=== PATIENT | male | born 1965 | race Caucasian/White ===

== ENCOUNTER 2021-08-25 20:36 | Inpatient (IN) ==
[2021-08-26] MEDS ORDERED: Naloxone 0.4 MG/ML INJ IVP PRN (00:16)
[2021-08-26] MEDS ORDERED: Melatonin 3 MG TABLET PO PRN (00:16)
[2021-08-26] MEDS ORDERED: Perflutren Lipid Microsphere 1.3 ML in 0.9 % Sodium Chloride 8.7 ML IVP PRN (00:21)
[2021-08-26 01:31] LABS: Hematocrit 41.1 % (37.5-50.1); Hemoglobin 13.5 g/dL (12.9-16.9); Mean Corpuscular HGB Conc 32.8 g/dL (31.6-35.5); Mean Corpuscular Hemoglobin 31.6 pg (28.0-33.3); Mean Corpuscular Volume 96.3 fL (83.0-100.0); Mean Platelet Volume 9.9 fL (9.4-12.4); Platelet Count 298 K/mcL (140-400); Red Blood Count 4.27 M/mcL (4.19-5.50); Red Cell Distribution Width 13.5 % (11.5-14.5); White Blood Count 14.8 K/mcL (4.3-11.1)
[2021-08-26 01:47] LABS: Alanine Aminotransferase 22 Units/L (7-52); Albumin 3.4 g/dL (3.5-5.7); Albumin/Globulin Ratio 1.3 (1.1-2.2); Alkaline Phosphatase 59 Units/L (34-104); Aspartate Amino Transferase 20 Units/L (13-39); BUN/Creatinine Ratio 19 (6-26); Bilirubin,Total 1.3 mg/dL (0.3-1.0); Blood Urea Nitrogen 23 mg/dL (6-20); Calcium 8.4 mg/dL (8.6-10.3); Carbon Dioxide 28 mEq/L (23-29); Chloride 99 mEq/L (98-107); Globulin 2.6 g/dL (2.4-3.5); Glucose 107 mg/dL (70-105); Magnesium 1.8 mg/dL (1.6-2.6); Osmolality,Calculated 284 (280-300); Phosphorous 3.9 mg/dL (2.7-4.5); Potassium 3.9 mEq/L (3.5-5.1); Sodium 135 mEq/L (136-145); eGFR For African Americans > 60 (> 60); eGFR For Non-African Americans > 60 (> 60)
[2021-08-26] MEDS: *HR* Heparin 5,000 UNIT/ML VIAL SQ SCH ×2 (06:47→16:53)
[2021-08-26] MEDS: Nicotine 14 MG PATCH.TD24 TD SCH (07:40)
[2021-08-26] MEDS: Furosemide 40 MG/4 ML VIAL IVP SCH ×2 (07:40→21:40)
[2021-08-26] MEDS: Aspirin 81 MG TAB.CHEW PO SCH (07:40)
[2021-08-26] MEDS: Metoprolol XL (24 HR) Succ 25 MG TAB.ER.24H PO SCH (09:40)
[2021-08-26] MEDS ORDERED: diazePAM 5 MG TABLET PO PRN (16:23)
[2021-08-26] MEDS: *HR* OxyCODONE Immed Rel 15 MG TABLET PO PRN (16:52)
[2021-08-26] MEDS: Gabapentin 300 MG CAPSULE PO SCH (21:40)
[2021-08-27] MEDS: *HR* Heparin 5,000 UNIT/ML VIAL SQ SCH (07:02)
[2021-08-27 07:27] VITALS: BP 115/81; PULSE 105; TEMP 98.7; O2SAT 96
[2021-08-27] MEDS: *HR* OxyCODONE Immed Rel 15 MG TABLET PO PRN ×2 (07:41→14:21)
[2021-08-27] MEDS: Aspirin 81 MG TAB.CHEW PO SCH (08:55)
[2021-08-27] MEDS: Metoprolol XL (24 HR) Succ 25 MG TAB.ER.24H PO SCH (08:55)
[2021-08-27] MEDS: Gabapentin 300 MG CAPSULE PO SCH ×2 (08:56→14:21)
[2021-08-27] MEDS: Furosemide 40 MG/4 ML VIAL IVP SCH (08:56)
[2021-08-27] MEDS ORDERED: lisinopriL 20 MG TABLET PO SCH (09:00)
[2021-08-27] MEDS: Nicotine 14 MG PATCH.TD24 TD SCH (14:23)
== END 2021-08-27 15:56 | disposition left against medical advice (07) | DRG 293 ==
LOC: 3NENU → SUATTDRO 23:30
PROVIDERS: ADMIT Student in an Organized Health Care Education/Training Program; ATTEND Internal Medicine

== ENCOUNTER 2021-09-09 14:02 | Inpatient (IN) ==
[2021-09-09 14:53] LABS: Basophils # 0.1 K/mcL (0.0-0.2); Basophils % 0.4 %; Eosinophils # 0.1 K/mcL (0.0-0.6); Eosinophils % 0.5 %; Hematocrit 37.2 % (37.5-50.1); Hemoglobin 12.3 g/dL (12.9-16.9); Immature Granulocytes % 0.8 % (0-4); Lymphocytes # 1.3 K/mcL (0.6-4.6); Lymphocytes % 10.2 %; Mean Corpuscular HGB Conc 33.1 g/dL (31.6-35.5); Mean Corpuscular Hemoglobin 31.7 pg (28.0-33.3); Mean Corpuscular Volume 95.9 fL (83.0-100.0); Mean Platelet Volume 9.2 fL (9.4-12.4); Monocytes # 1.4 K/mcL (0.0-1.3); Monocytes % 11.1 %; Platelet Count 454 K/mcL (140-400); Red Blood Count 3.88 M/mcL (4.19-5.50)
[2021-09-09 15:09] LABS: BUN/Creatinine Ratio 17 (6-26); Blood Urea Nitrogen 17 mg/dL (6-20); Calcium 8.4 mg/dL (8.6-10.3); Carbon Dioxide 24 mEq/L (23-29); Chloride 98 mEq/L (98-107); Glucose 120 mg/dL (70-105); Osmolality,Calculated 271 (280-300); Potassium 4.4 mEq/L (3.5-5.1); Sodium 129 mEq/L (136-145); Troponin I 0.05 ng/mL (< 0.04); eGFR For African Americans > 60 (> 60); eGFR For Non-African Americans > 60 (> 60)
[2021-09-09] MEDS ORDERED: Furosemide 40 MG/4 ML VIAL IVP ONE (16:22)
[2021-09-09 16:43] LABS: Influenza A PCR Negative (Negative); Influenza B PCR Negative (Negative); Resp. Syncytial Virus PCR Negative (Negative)
[2021-09-09 16:45] LABS: SARS-CoV-2 by PCR (In House) Negative (Negative)
[2021-09-09] MEDS ORDERED: diazePAM 10 MG TABLET PO PRN (22:30)
[2021-09-09] MEDS ORDERED: Naloxone 0.4 MG/ML INJ IVP PRN (22:32)
[2021-09-09] MEDS ORDERED: Acetaminophen 325 MG TABLET PO PRN (22:32)
[2021-09-09] MEDS ORDERED: Ondansetron 4 MG/2 ML VIAL IVP PRN (22:32)
[2021-09-09] MEDS: *HR* OxyCODONE Immed Rel 15 MG TABLET PO PRN (22:42)
[2021-09-09] MEDS: diazePAM 5 MG TABLET PO PRN (22:55)
[2021-09-09 23:00] LABS: Bilirubin,Urine Negative (Negative); Blood,Urine Negative (Negative); Clarity,Urine Clear (Clear); Color,Urine Colorless (Yellow); Glucose,Urine (UA) Normal (Normal); Ketones,Urine Negative (Negative); Leukocyte Esterase,Urine Negative (Negative); Nitrite,Urine Negative (Negative); PH,Urine 6.5 pH Units (5.0-8.0); Protein,Urine Negative (Neg-Trace); Urobilinogen,Urine Normal (Normal)
[2021-09-10 01:43] LABS: Hemoglobin 12.9 g/dL (12.9-16.9); Mean Corpuscular HGB Conc 33.9 g/dL (31.6-35.5); Mean Corpuscular Hemoglobin 31.9 pg (28.0-33.3); Mean Corpuscular Volume 94.1 fL (83.0-100.0); Mean Platelet Volume 9.1 fL (9.4-12.4); Platelet Count 475 K/mcL (140-400); Red Blood Count 4.04 M/mcL (4.19-5.50); Red Cell Distribution Width 13.7 % (11.5-14.5); White Blood Count 13.2 K/mcL (4.3-11.1)
[2021-09-10 01:50] LABS: BUN/Creatinine Ratio 16 (6-26); Blood Urea Nitrogen 17 mg/dL (6-20); Calcium 8.1 mg/dL (8.6-10.3); Carbon Dioxide 28 mEq/L (23-29); Chloride 97 mEq/L (98-107); Chol/HDL Ratio 2.9 (0-4.9); Cholesterol 86 mg/dL (< 200); Glucose 129 mg/dL (70-105); HDL Cholesterol 30 mg/dL (40-59); LDL Cholesterol,Calculated 49 mg/dL (< 100); Magnesium 1.6 mg/dL (1.6-2.6); Osmolality,Calculated 279 (280-300); Potassium 3.6 mEq/L (3.5-5.1); Sodium 133 mEq/L (136-145); Triglycerides 34 mg/dL (< 150); eGFR For African Americans > 60 (> 60); eGFR For Non-African Americans > 60 (> 60)
[2021-09-10 01:53] LABS: % Iron Saturation 3 % (20-55); Iron 11 mcg/dL (65-175); Transferrin 233 mg/dL (203-362)
[2021-09-10 02:11] LABS: Ferritin 156 ng/mL (20-250)
[2021-09-10 02:16] LABS: Folate 13.7 ng/mL (3.0-16.0)
[2021-09-10] MEDS: *HR* Heparin 5,000 UNIT/ML VIAL SQ SCH ×2 (04:51→16:38)
[2021-09-10] MEDS: lisinopriL 20 MG TABLET PO SCH (08:10)
[2021-09-10] MEDS: Gabapentin 400 MG CAPSULE PO SCH ×4 (08:14→19:40)
[2021-09-10] MEDS: Aspirin Enteric Coated 81 MG Tablet PO SCH (08:14)
[2021-09-10] MEDS: Furosemide 20 MG/2 ML VIAL IVP SCH ×2 (08:14→19:39)
[2021-09-10] MEDS: *HR* Metoprolol 5 MG/5 ML VIAL IVP PRN (16:39)
[2021-09-10] MEDS: *HR* OxyCODONE Immed Rel 15 MG TABLET PO PRN ×2 (16:43→22:55)
[2021-09-10] MEDS: diazePAM 5 MG TABLET PO PRN (22:55)
[2021-09-11] MEDS: *HR* OxyCODONE Immed Rel 15 MG TABLET PO PRN ×3 (05:12→22:43)
[2021-09-11] MEDS: *HR* Heparin 5,000 UNIT/ML VIAL SQ SCH ×2 (05:13→16:04)
[2021-09-11 05:20] LABS: Basophils # 0.1 K/mcL (0.0-0.2); Basophils % 0.5 %; Eosinophils # 0.1 K/mcL (0.0-0.6); Eosinophils % 0.7 %; Hemoglobin 13.5 g/dL (12.9-16.9); Immature Granulocytes % 0.9 % (0-4); Lymphocytes # 1.9 K/mcL (0.6-4.6); Lymphocytes % 14.1 %; Mean Corpuscular HGB Conc 32.9 g/dL (31.6-35.5); Mean Corpuscular Hemoglobin 31.5 pg (28.0-33.3); Mean Corpuscular Volume 95.8 fL (83.0-100.0); Mean Platelet Volume 9.1 fL (9.4-12.4); Monocytes # 1.7 K/mcL (0.0-1.3); Monocytes % 13.3 %; Neutrophils # 9.2 K/mcL (1.6-8.9); Platelet Count 563 K/mcL (140-400); Red Blood Count 4.28 M/mcL (4.19-5.50); Red Cell Distribution Width 14.2 % (11.5-14.5); Segmented Neutrophils % 70.5 %; White Blood Count 13.1 K/mcL (4.3-11.1)
[2021-09-11 05:48] LABS: BUN/Creatinine Ratio 16 (6-26); Blood Urea Nitrogen 19 mg/dL (6-20); Calcium 8.7 mg/dL (8.6-10.3); Carbon Dioxide 33 mEq/L (23-29); Chloride 95 mEq/L (98-107); Glucose 164 mg/dL (70-105); Osmolality,Calculated 282 (280-300); Potassium 4.8 mEq/L (3.5-5.1); Sodium 133 mEq/L (136-145); eGFR For African Americans > 60 (> 60); eGFR For Non-African Americans > 60 (> 60)
[2021-09-11] MEDS: lisinopriL 20 MG TABLET PO SCH (07:30)
[2021-09-11] MEDS: Gabapentin 400 MG CAPSULE PO SCH ×4 (07:36→19:38)
[2021-09-11] MEDS: Aspirin Enteric Coated 81 MG Tablet PO SCH (07:36)
[2021-09-11] MEDS: Furosemide 20 MG/2 ML VIAL IVP SCH ×3 (07:36→19:37)
[2021-09-11] MEDS: *HR* Metoprolol 5 MG/5 ML VIAL IVP PRN (16:04)
[2021-09-11] MEDS: diazePAM 5 MG TABLET PO PRN (22:43)
[2021-09-12 03:04] LABS: Basophils # 0.1 K/mcL (0.0-0.2); Basophils % 0.5 %; Eosinophils # 0.2 K/mcL (0.0-0.6); Eosinophils % 1.1 %; Hematocrit 37.9 % (37.5-50.1); Hemoglobin 12.6 g/dL (12.9-16.9); Immature Granulocytes % 0.8 % (0-4); Lymphocytes # 1.5 K/mcL (0.6-4.6); Lymphocytes % 10.7 %; Mean Corpuscular HGB Conc 33.2 g/dL (31.6-35.5); Mean Corpuscular Hemoglobin 31.4 pg (28.0-33.3); Mean Corpuscular Volume 94.5 fL (83.0-100.0); Mean Platelet Volume 9.1 fL (9.4-12.4); Monocytes % 13.7 %; Neutrophils # 10.4 K/mcL (1.6-8.9); Platelet Count 587 K/mcL (140-400); Red Blood Count 4.01 M/mcL (4.19-5.50); Red Cell Distribution Width 13.8 % (11.5-14.5); Segmented Neutrophils % 73.2 %; White Blood Count 14.2 K/mcL (4.3-11.1)
[2021-09-12 03:19] LABS: BUN/Creatinine Ratio 22 (6-26); Blood Urea Nitrogen 24 mg/dL (6-20); Calcium 8.6 mg/dL (8.6-10.3); Carbon Dioxide 29 mEq/L (23-29); Chloride 95 mEq/L (98-107); Glucose 121 mg/dL (70-105); Magnesium 1.9 mg/dL (1.6-2.6); Osmolality,Calculated 281 (280-300); Potassium 4.6 mEq/L (3.5-5.1); Sodium 133 mEq/L (136-145); eGFR For African Americans > 60 (> 60); eGFR For Non-African Americans > 60 (> 60)
[2021-09-12] MEDS: *HR* Heparin 5,000 UNIT/ML VIAL SQ SCH ×2 (05:20→16:07)
[2021-09-12] MEDS: *HR* OxyCODONE Immed Rel 15 MG TABLET PO PRN ×3 (05:24→20:30)
[2021-09-12] MEDS: lisinopriL 20 MG TABLET PO SCH (08:20)
[2021-09-12] MEDS: Gabapentin 400 MG CAPSULE PO SCH ×4 (08:49→20:22)
[2021-09-12] MEDS: Aspirin Enteric Coated 81 MG Tablet PO SCH (08:49)
[2021-09-12] MEDS: Furosemide 20 MG/2 ML VIAL IVP SCH ×2 (08:50→20:23)
[2021-09-12] MEDS ORDERED: Acetaminophen 325 MG TABLET PO PRN (10:46)
[2021-09-12] MEDS: *HR* Metoprolol 5 MG/5 ML VIAL IVP PRN ×2 (16:01→22:07)
[2021-09-12 23:58] LABS: ABG Base Excess 3 mEq/L (-2 to 3); ABG HCO3 28 mEq/L (21-27); ABG Oxygen Saturation 98 % (95-98); ABG PCO2 43 mmHg (35-45); ABG PH 7.42 pH Units (7.32-7.45); ABG PO2 101 mmHg (85-104); ABG TCO2 30 mEq/L (20-26)
[2021-09-13] MEDS: *HR* Heparin 5,000 UNIT/ML VIAL SQ SCH ×2 (05:17→16:37)
[2021-09-13] MEDS: *HR* OxyCODONE Immed Rel 15 MG TABLET PO PRN (05:56)
[2021-09-13 06:06] LABS: Basophils % 0.4 %; Eosinophils # 0.1 K/mcL (0.0-0.6); Eosinophils % 1.1 %; Hematocrit 36.6 % (37.5-50.1); Hemoglobin 11.9 g/dL (12.9-16.9); Immature Granulocytes % 0.6 % (0-4); Lymphocytes # 2.1 K/mcL (0.6-4.6); Lymphocytes % 18.4 %; Mean Corpuscular HGB Conc 32.5 g/dL (31.6-35.5); Mean Corpuscular Hemoglobin 30.7 pg (28.0-33.3); Mean Corpuscular Volume 94.6 fL (83.0-100.0); Mean Platelet Volume 9.2 fL (9.4-12.4); Monocytes # 1.7 K/mcL (0.0-1.3); Monocytes % 14.7 %; Neutrophils # 7.3 K/mcL (1.6-8.9); Platelet Count 562 K/mcL (140-400); Red Blood Count 3.87 M/mcL (4.19-5.50); Red Cell Distribution Width 13.9 % (11.5-14.5); Segmented Neutrophils % 64.8 %; White Blood Count 11.2 K/mcL (4.3-11.1)
[2021-09-13 06:29] LABS: BUN/Creatinine Ratio 24 (6-26); Blood Urea Nitrogen 31 mg/dL (6-20); Calcium 8.8 mg/dL (8.6-10.3); Carbon Dioxide 31 mEq/L (23-29); Chloride 92 mEq/L (98-107); Glucose 120 mg/dL (70-105); Magnesium 2.2 mg/dL (1.6-2.6); Osmolality,Calculated 282 (280-300); Potassium 4.4 mEq/L (3.5-5.1); Sodium 132 mEq/L (136-145); eGFR For African Americans > 60 (> 60); eGFR For Non-African Americans 57 (> 60)
[2021-09-13] MEDS: Metoprolol XL (24 HR) Succ 25 MG TAB.ER.24H PO SCH (09:35)
[2021-09-13] MEDS: lisinopriL 10 MG TABLET PO SCH (09:35)
[2021-09-13] MEDS: Gabapentin 400 MG CAPSULE PO SCH ×4 (09:35→20:16)
[2021-09-13] MEDS: Aspirin Enteric Coated 81 MG Tablet PO SCH (09:35)
[2021-09-13] MEDS: Furosemide 20 MG/2 ML VIAL IVP SCH ×2 (09:35→20:16)
[2021-09-13] MEDS: *HR* Metoprolol 5 MG/5 ML VIAL IVP PRN (17:20)
[2021-09-13] MEDS ORDERED: *HR* OxyCODONE/APAP 5/325 TABLET PO PRN (17:58)
[2021-09-14 03:23] LABS: Basophils # 0.1 K/mcL (0.0-0.2); Basophils % 0.5 %; Eosinophils # 0.3 K/mcL (0.0-0.6); Eosinophils % 2.8 %; Hematocrit 38.9 % (37.5-50.1); Hemoglobin 12.7 g/dL (12.9-16.9); Immature Granulocytes % 0.7 % (0-4); Lymphocytes # 2.1 K/mcL (0.6-4.6); Lymphocytes % 18.4 %; Mean Corpuscular HGB Conc 32.6 g/dL (31.6-35.5); Mean Corpuscular Hemoglobin 31.1 pg (28.0-33.3); Mean Corpuscular Volume 95.1 fL (83.0-100.0); Mean Platelet Volume 9.2 fL (9.4-12.4); Monocytes # 1.6 K/mcL (0.0-1.3); Monocytes % 14.2 %; Neutrophils # 7.2 K/mcL (1.6-8.9); Platelet Count 588 K/mcL (140-400); Red Blood Count 4.09 M/mcL (4.19-5.50); Red Cell Distribution Width 13.9 % (11.5-14.5); Segmented Neutrophils % 63.4 %; White Blood Count 11.4 K/mcL (4.3-11.1)
[2021-09-14 03:43] LABS: BUN/Creatinine Ratio 24 (6-26); Blood Urea Nitrogen 29 mg/dL (6-20); Calcium 8.6 mg/dL (8.6-10.3); Carbon Dioxide 34 mEq/L (23-29); Chloride 91 mEq/L (98-107); Glucose 80 mg/dL (70-105); Magnesium 2.2 mg/dL (1.6-2.6); Osmolality,Calculated 283 (280-300); Potassium 3.7 mEq/L (3.5-5.1); Sodium 134 mEq/L (136-145); eGFR For African Americans > 60 (> 60); eGFR For Non-African Americans > 60 (> 60)
[2021-09-14] MEDS: *HR* Heparin 5,000 UNIT/ML VIAL SQ SCH ×2 (05:34→16:46)
[2021-09-14] MEDS: Furosemide 20 MG/2 ML VIAL IVP SCH (07:23)
[2021-09-14] MEDS: lisinopriL 10 MG TABLET PO SCH (07:23)
[2021-09-14] MEDS: Aspirin Enteric Coated 81 MG Tablet PO SCH (07:53)
[2021-09-14] MEDS: Gabapentin 400 MG CAPSULE PO SCH ×4 (07:53→21:02)
[2021-09-14] MEDS: *HR* OxyCODONE Immed Rel 15 MG TABLET PO PRN ×3 (07:53→21:02)
[2021-09-14] MEDS: Metoprolol XL (24 HR) Succ 25 MG TAB.ER.24H PO SCH (07:53)
[2021-09-14] MEDS ORDERED: *HR* Heparin 10,000 UNIT/10 ML VIAL ONE (14:41)
[2021-09-14] MEDS ORDERED: *HR* FentaNYL (PF) 100 MCG/2 ML VIAL ONE (14:41)
[2021-09-14] MEDS ORDERED: *HR* Midazolam HCl 2 MG/2 ML VIAL ONE (14:41)
[2021-09-14] MEDS ORDERED: Heparin 1,000 UNITS/500 mL 500 ML ONE (14:42)
[2021-09-14] MEDS ORDERED: 0.9 % Sodium Chloride 1,000 ML ONE (14:42)
[2021-09-14] MEDS ORDERED: ISOVUE-370 200 ML INFUS..BTL ONE (14:42)
[2021-09-14] MEDS ORDERED: Nitroglycerin 1,000 MCG/5 ML VIAL IV ONE (14:42)
[2021-09-15] MEDS: *HR* Heparin 5,000 UNIT/ML VIAL SQ SCH (05:19)
[2021-09-15] MEDS: *HR* OxyCODONE Immed Rel 15 MG TABLET PO PRN ×2 (05:19→08:53)
[2021-09-15] MEDS: lisinopriL 10 MG TABLET PO SCH (07:42)
[2021-09-15] MEDS: Gabapentin 400 MG CAPSULE PO SCH (07:42)
[2021-09-15] MEDS: Aspirin Enteric Coated 81 MG Tablet PO SCH (07:42)
[2021-09-15] MEDS: Metoprolol XL (24 HR) Succ 25 MG TAB.ER.24H PO SCH (07:43)
[2021-09-15] MEDS: diazePAM 5 MG TABLET PO PRN (08:53)
[2021-09-15] MEDS ORDERED: Furosemide 20 MG TABLET PO SCH (09:00)
[2021-09-15] MEDS ORDERED: Spironolactone 25 MG TABLET PO SCH (09:00)
[2021-09-15 09:49] VITALS: BP 100/67; PULSE 107; TEMP 97.8; O2SAT 96
[2021-09-15] MEDS ORDERED: Furosemide 20 MG TABLET PO PRN (16:10)
== END 2021-09-15 12:00 | disposition home or self-care (01) | DRG 280 ==
LOC: EMEROOARM 14:02 → 2ANU 14:02 → SUATTDRO 20:20 → 2ANU 20:56
PROVIDERS: ADMIT Internal Medicine; ATTEND Family Medicine

== ENCOUNTER 2021-09-22 01:16 | Observation (INO) ==
[2021-09-22 02:27] LABS: Basophils # 0.1 K/mcL (0.0-0.2); Basophils % 0.5 %; Eosinophils # 0.1 K/mcL (0.0-0.6); Eosinophils % 0.9 %; Hematocrit 41.8 % (37.5-50.1); Hemoglobin 14.1 g/dL (12.9-16.9); Immature Granulocytes % 0.7 % (0-4); Lymphocytes # 2.2 K/mcL (0.6-4.6); Lymphocytes % 17.9 %; Mean Corpuscular HGB Conc 33.7 g/dL (31.6-35.5); Mean Corpuscular Hemoglobin 30.7 pg (28.0-33.3); Mean Corpuscular Volume 90.9 fL (83.0-100.0); Mean Platelet Volume 9.2 fL (9.4-12.4); Monocytes # 1.5 K/mcL (0.0-1.3); Neutrophils # 8.3 K/mcL (1.6-8.9); Platelet Count 419 K/mcL (140-400); Red Cell Distribution Width 13.8 % (11.5-14.5); White Blood Count 12.2 K/mcL (4.3-11.1)
[2021-09-22 02:38] LABS: Alanine Aminotransferase 16 Units/L (7-52); Albumin 3.2 g/dL (3.5-5.7); Albumin/Globulin Ratio 1.1 (1.1-2.2); Alkaline Phosphatase 72 Units/L (34-104); Amylase 22 Units/L (29-103); Aspartate Amino Transferase 17 Units/L (13-39); BUN/Creatinine Ratio 21 (6-26); Bilirubin,Total 1.4 mg/dL (0.3-1.0); Blood Urea Nitrogen 18 mg/dL (6-20); Calcium 8.5 mg/dL (8.6-10.3); Carbon Dioxide 22 mEq/L (23-29); Chloride 102 mEq/L (98-107); Glucose 106 mg/dL (70-105); Osmolality,Calculated 280 (280-300); Potassium 4.1 mEq/L (3.5-5.1); Sodium 134 mEq/L (136-145); Total Protein 6.2 g/dL (6.4-8.9); eGFR For African Americans > 60 (> 60); eGFR For Non-African Americans > 60 (> 60)
[2021-09-22 02:46] LABS: Troponin I 0.05 ng/mL (< 0.04)
[2021-09-22] MEDS ORDERED: Isovue-370 500 ML BOTTLE IVP ONE ×2 (02:48→02:57)
[2021-09-22] MEDS ORDERED: Furosemide 20 MG/2 ML VIAL IVP ONE (04:50)
[2021-09-22] MEDS ORDERED: Acetaminophen 325 MG TABLET PO PRN (04:54)
[2021-09-22] MEDS ORDERED: MetroNIDAZOLE 500 MG/100 ML 500 MG/100 ML BAG IVPB ONE (04:54)
[2021-09-22] MEDS ORDERED: Naloxone 0.4 MG/ML INJ IVP PRN (04:54)
[2021-09-22] MEDS ORDERED: Ondansetron 4 MG/2 ML VIAL IVP PRN (04:54)
[2021-09-22 06:17] LABS: Troponin I 0.05 ng/mL (< 0.04)
[2021-09-22 07:08] LABS: Thyroid Stimulating Hormone 2.874 mcIU/mL (0.340-5.600)
[2021-09-22] MEDS: MetroNIDAZOLE 500 MG/100 ML 500 MG/100 ML BAG IVPB SCH ×2 (09:25→14:54)
[2021-09-22] MEDS: Albumin 25% 25gram/100mL 25 GM/100 ML IV.SOLN IVPB SCH ×3 (09:26→23:55)
[2021-09-22] MEDS ORDERED: lisinopriL 10 MG TABLET PO SCH (10:45)
[2021-09-22] MEDS ORDERED: Metoprolol XL (24 HR) Succ 25 MG TAB.ER.24H PO SCH (10:45)
[2021-09-22] MEDS ORDERED: Perflutren Lipid Microsphere 1.3 ML in 0.9 % Sodium Chloride 8.7 ML IVP PRN ×2 (10:51→15:04)
[2021-09-22] MEDS: Isosorbide MONOnitrate (24 HR) 30 MG TAB.ER.24H PO SCH (14:42)
[2021-09-22] MEDS: Furosemide 40 MG/4 ML VIAL IVP SCH ×2 (14:43→18:53)
[2021-09-22] MEDS: *HR* Heparin 5,000 UNIT/ML VIAL SQ SCH ×2 (14:48→20:54)
[2021-09-22 15:29] LABS: Bilirubin,Urine Negative (Negative); Blood,Urine Negative (Negative); Clarity,Urine Clear (Clear); Color,Urine Light-Yellow (Yellow); Glucose,Urine (UA) Normal (Normal); Ketones,Urine Negative (Negative); Leukocyte Esterase,Urine Negative (Negative); Nitrite,Urine Negative (Negative); Protein,Urine Negative (Neg-Trace); Specific Gravity,Urine 1.024 (1.010-1.025); Urobilinogen,Urine Normal (Normal)
[2021-09-22 16:16] LABS: Adenovirus Not Detected (Not Detect); Bordetella Pertussis Not Detected (Not Detect); Chlamydophila pneumoniae Not Detected (Not Detect); Coronavirus 229E Not Detected (Not Detect); Coronavirus HKU1 Not Detected (Not Detect); Coronavirus NL63 Not Detected (Not Detect); Coronavirus OC43 Not Detected (Not Detect); Human Metapneumovirus Not Detected (Not Detect); Human Rhinovirus/Enterovirus Not Detected (Not Detect); Influenza A Subtype 2009 H1 Not Detected (Not Detect); Influenza B Not Detected (Not Detect); Mycoplasma pneumoniae Not Detected (Not Detect); Parainfluenza Virus 1 Not Detected (Not Detect); Parainfluenza Virus 2 Not Detected (Not Detect); Parainfluenza Virus 3 Not Detected (Not Detect); Parainfluenza Virus 4 Not Detected (Not Detect); Respiratory Syncytial Virus Not Detected (Not Detect); SARS-CoV-2 Not Detected (Not Detect)
[2021-09-22] MEDS ORDERED: Ringers Solution, Lactated 1,000 ML IVC ONE (18:51)
[2021-09-23] MEDS: MetroNIDAZOLE 500 MG/100 ML 500 MG/100 ML BAG IVPB SCH ×2 (00:01→08:02)
[2021-09-23 03:12] LABS: Basophils % 0.3 %; Eosinophils # 0.1 K/mcL (0.0-0.6); Eosinophils % 1.3 %; Hematocrit 35.7 % (37.5-50.1); Immature Granulocytes % 0.7 % (0-4); Lymphocytes # 2.1 K/mcL (0.6-4.6); Lymphocytes % 21.2 %; Mean Corpuscular HGB Conc 33.9 g/dL (31.6-35.5); Mean Corpuscular Hemoglobin 31.1 pg (28.0-33.3); Mean Corpuscular Volume 91.8 fL (83.0-100.0); Monocytes # 1.4 K/mcL (0.0-1.3); Monocytes % 13.7 %; Neutrophils # 6.3 K/mcL (1.6-8.9); Platelet Count 325 K/mcL (140-400); Red Blood Count 3.89 M/mcL (4.19-5.50); Red Cell Distribution Width 13.8 % (11.5-14.5); Segmented Neutrophils % 62.8 %; White Blood Count 10.1 K/mcL (4.3-11.1)
[2021-09-23 03:15] LABS: Hemoglobin 12.1 g/dL (12.9-16.9)
[2021-09-23 03:33] LABS: BUN/Creatinine Ratio 20 (6-26); Blood Urea Nitrogen 19 mg/dL (6-20); Calcium 8.2 mg/dL (8.6-10.3); Carbon Dioxide 26 mEq/L (23-29); Chloride 101 mEq/L (98-107); Glucose 105 mg/dL (70-105); Magnesium 1.5 mg/dL (1.6-2.6); Osmolality,Calculated 281 (280-300); Potassium 3.7 mEq/L (3.5-5.1); Sodium 134 mEq/L (136-145); eGFR For African Americans > 60 (> 60); eGFR For Non-African Americans > 60 (> 60)
[2021-09-23] MEDS: *HR* Heparin 5,000 UNIT/ML VIAL SQ SCH (05:58)
[2021-09-23] MEDS: Albumin 25% 25gram/100mL 25 GM/100 ML IV.SOLN IVPB SCH (08:02)
[2021-09-23] MEDS: Isosorbide MONOnitrate (24 HR) 30 MG TAB.ER.24H PO SCH (08:17)
[2021-09-23] MEDS ORDERED: Metoprolol XL (24 HR) Succ 25 MG TAB.ER.24H PO SCH (09:00)
[2021-09-23] MEDS ORDERED: Spironolactone 12.5 MG TABLET PO SCH (09:00)
[2021-09-23] MEDS ORDERED: Furosemide 20 MG TABLET PO SCH ×2 (09:00)
[2021-09-23] MEDS ORDERED: Gabapentin 400 MG CAPSULE PO SCH (09:00)
[2021-09-23] MEDS ORDERED: levoFLOXacin 750 MG/150 ML 750 MG/150 ML BAG IVPB SCH (09:00)
[2021-09-23] MEDS ORDERED: lisinopriL 5 MG TABLET PO SCH (09:00)
[2021-09-23] MEDS ORDERED: Spironolactone 25 MG TABLET PO SCH (09:00)
[2021-09-23 11:28] VITALS: BP 95/53; PULSE 97; TEMP 97.9; O2SAT 97
== END 2021-09-23 13:06 | disposition left against medical advice (07) ==
LOC: 2ANU 01:16 → EMEROOARM 01:16 → SUATTDRO 05:16 → 2ANU 06:10
PROVIDERS: ADMIT Student in an Organized Health Care Education/Training Program; ATTEND Pharmacist

== ENCOUNTER 2021-11-17 13:43 | Inpatient (IN) ==
[2021-11-17 14:50] LABS: Basophils % 0.2 %; Hemoglobin 15.8 g/dL (12.9-16.9); Immature Granulocytes % 0.5 % (0-4); Lymphocytes # 0.7 K/mcL (0.6-4.6); Lymphocytes % 5.7 %; Mean Corpuscular HGB Conc 32.9 g/dL (31.6-35.5); Mean Corpuscular Hemoglobin 30.1 pg (28.0-33.3); Mean Corpuscular Volume 91.4 fL (83.0-100.0); Mean Platelet Volume 11.2 fL (9.4-12.4); Platelet Count 199 K/mcL (140-400); Red Blood Count 5.25 M/mcL (4.19-5.50); Red Cell Distribution Width 16.7 % (11.5-14.5); Segmented Neutrophils % 85.6 %; White Blood Count 12.8 K/mcL (4.3-11.1)
[2021-11-17 15:08] LABS: BUN/Creatinine Ratio 31 (6-26); Blood Urea Nitrogen 38 mg/dL (6-20); Calcium 9.2 mg/dL (8.6-10.3); Carbon Dioxide 26 mEq/L (23-29); Chloride 96 mEq/L (98-107); Glucose 121 mg/dL (70-105); Osmolality,Calculated 288 (280-300); Potassium 4.5 mEq/L (3.5-5.1); Sodium 134 mEq/L (136-145); eGFR For African Americans > 60 (> 60); eGFR For Non-African Americans > 60 (> 60)
[2021-11-17 15:35] LABS: Alanine Aminotransferase 221 Units/L (7-52); Albumin 3.6 g/dL (3.5-5.7); Albumin/Globulin Ratio 1.2 (1.1-2.2); Alkaline Phosphatase 88 Units/L (34-104); Aspartate Amino Transferase 266 Units/L (13-39); Bilirubin,Direct 0.8 mg/dL (0.0-0.2); Bilirubin,Indirect 2.8 mg/dL (0.0-1.0); Bilirubin,Total 3.6 mg/dL (0.3-1.0); Lipase 8 Units/L (11-82); Total Protein 6.6 g/dL (6.4-8.9)
[2021-11-17 15:39] LABS: Troponin I 0.04 ng/mL (< 0.04)
[2021-11-17] MEDS ORDERED: Iopamidol - 370 500 ML MLS IVP ONE (15:39)
[2021-11-17] MEDS ORDERED: Aspirin 325 MG TABLET PO ONE (15:40)
[2021-11-17] MEDS ORDERED: Ondansetron 4 MG/2 ML VIAL IVP PRN ×2 (15:40→19:20)
[2021-11-17] MEDS ORDERED: Piperacillin/Tazobactam 3.375 GM in 0.9 % Sodium Chloride Mini Bag 100 ML IVPB ONE (15:41)
[2021-11-17] MEDS ORDERED: Vancomycin 1,250 MG/262.5 ML IV.SOLN IVPB ONE (16:00)
[2021-11-17 16:14] LABS: Influenza A PCR Negative (Negative); Influenza B PCR Negative (Negative); Resp. Syncytial Virus PCR Negative (Negative)
[2021-11-17 16:16] LABS: SARS-CoV-2 by PCR (In House) Negative (Negative)
[2021-11-17 16:20] LABS: Bacteria,Urine Few per hpf (None-Few); Bilirubin,Urine Negative (Negative); Blood,Urine Trace (Negative); Clarity,Urine Clear (Clear); Color,Urine Yellow (Yellow); Glucose,Urine (UA) Normal (Normal); Hyaline Casts,Urine Moderate per lpf (None Seen); Ketones,Urine 10 mg/dL (Negative); Leukocyte Esterase,Urine Negative (Negative); Mucus,Urine Few per lpf (None-Few); Nitrite,Urine Negative (Negative); Protein,Urine 50 mg/dL (Neg-Trace); Specific Gravity,Urine > 1.030 (1.010-1.025); WBC,Urine 0-3 per hpf (0-3)
[2021-11-17 16:22] LABS: INR 2.1; Prothrombin Time 23.3 Seconds (9.4-12.1)
[2021-11-17 16:25] LABS: Activated Partial Thrombo Time 37.6 Seconds (26.0-36.0)
[2021-11-17] MEDS ORDERED: Furosemide 40 MG/4 ML VIAL IVP ONE (18:11)
[2021-11-17] MEDS ORDERED: Naloxone 0.4 MG/ML INJ IVP PRN (19:20)
[2021-11-17] MEDS ORDERED: Acetaminophen 325 MG TABLET PO PRN (19:20)
[2021-11-17 21:46] LABS: Hepatitis B Surface Antigen Nonreactive (Nonreactive)
[2021-11-17 22:13] LABS: Hepatitis B Core IgM Nonreactive (Nonreactive)
[2021-11-17 22:15] LABS: Hepatitis C Virus Antibody Nonreactive (Nonreactive)
[2021-11-17 22:18] LABS: Hepatitis A Antibody IgM Nonreactive (Nonreactive)
[2021-11-17] MEDS ORDERED: diazePAM 5 MG TABLET PO SCH (23:15)
[2021-11-18] MEDS: lisinopriL 5 MG TABLET PO SCH ×2 (00:55→10:29)
[2021-11-18] MEDS: Metoprolol XL (24 HR) Succ 25 MG TAB.ER.24H PO SCH ×2 (00:55→10:29)
[2021-11-18] MEDS: Piperacillin/Tazobactam 3.375 GM in 0.9 % Sodium Chloride Mini Bag 100 ML IVPB SCH ×4 (01:40→18:41)
[2021-11-18 07:00] LABS: Hematocrit 48.9 % (37.5-50.1); Hemoglobin 16.1 g/dL (12.9-16.9); Mean Corpuscular HGB Conc 32.9 g/dL (31.6-35.5); Mean Corpuscular Hemoglobin 30.3 pg (28.0-33.3); Mean Corpuscular Volume 92.1 fL (83.0-100.0); Platelet Count 208 K/mcL (140-400); Red Blood Count 5.31 M/mcL (4.19-5.50); Red Cell Distribution Width 16.7 % (11.5-14.5)
[2021-11-18 08:35] LABS: BUN/Creatinine Ratio 33 (6-26); Blood Urea Nitrogen 43 mg/dL (6-20); Calcium 7.6 mg/dL (8.6-10.3); Carbon Dioxide 21 mEq/L (23-29); Chloride 95 mEq/L (98-107); Glucose 123 mg/dL (70-105); Osmolality,Calculated 288 (280-300); Potassium 4.8 mEq/L (3.5-5.1); Sodium 133 mEq/L (136-145); eGFR For African Americans > 60 (> 60); eGFR For Non-African Americans 56 (> 60)
[2021-11-18] MEDS ORDERED: Furosemide 40 MG/4 ML VIAL IVP SCH (09:00)
[2021-11-18] MEDS: Aspirin Enteric Coated 81 MG Tablet PO SCH (10:29)
[2021-11-18 13:20] LABS: Alanine Aminotransferase 224 Units/L (7-52); Albumin 3.3 g/dL (3.5-5.7); Albumin/Globulin Ratio 1.2 (1.1-2.2); Alkaline Phosphatase 77 Units/L (34-104); Aspartate Amino Transferase 250 Units/L (13-39); Bilirubin,Direct 0.5 mg/dL (0.0-0.2); Bilirubin,Indirect 2.4 mg/dL (0.0-1.0); Bilirubin,Total 2.9 mg/dL (0.3-1.0); Globulin 2.8 g/dL (2.4-3.5); Total Protein 6.1 g/dL (6.4-8.9)
[2021-11-18 13:41] LABS: Prothrombin Time 22.2 Seconds (9.4-12.1)
[2021-11-18] MEDS: *HR* Heparin 5,000 UNIT/ML VIAL SQ SCH ×2 (16:01→20:20)
[2021-11-18] MEDS: Furosemide 20 MG/2 ML VIAL IVP SCH (18:41)
[2021-11-19] MEDS: Piperacillin/Tazobactam 3.375 GM in 0.9 % Sodium Chloride Mini Bag 100 ML IVPB SCH ×3 (02:05→17:24)
[2021-11-19 06:13] LABS: Basophils % 0.1 %; Eosinophils % 0.1 %; Hematocrit 39.6 % (37.5-50.1); Immature Granulocytes % 0.5 % (0-4); Lymphocytes # 1.4 K/mcL (0.6-4.6); Lymphocytes % 7.7 %; Mean Corpuscular HGB Conc 33.6 g/dL (31.6-35.5); Mean Corpuscular Hemoglobin 30.3 pg (28.0-33.3); Mean Corpuscular Volume 90.2 fL (83.0-100.0); Mean Platelet Volume 11.2 fL (9.4-12.4); Monocytes # 2.3 K/mcL (0.0-1.3); Monocytes % 12.7 %; Platelet Count 199 K/mcL (140-400); Red Blood Count 4.39 M/mcL (4.19-5.50); Red Cell Distribution Width 16.3 % (11.5-14.5); Segmented Neutrophils % 78.9 %; White Blood Count 17.8 K/mcL (4.3-11.1)
[2021-11-19 06:15] LABS: Hemoglobin 13.3 g/dL (12.9-16.9)
[2021-11-19 06:33] LABS: Alanine Aminotransferase 231 Units/L (7-52); Albumin 2.7 g/dL (3.5-5.7); Albumin/Globulin Ratio 1.3 (1.1-2.2); Alkaline Phosphatase 65 Units/L (34-104); Aspartate Amino Transferase 239 Units/L (13-39); BUN/Creatinine Ratio 53 (6-26); Bilirubin,Direct 0.7 mg/dL (0.0-0.2); Bilirubin,Indirect 1.3 mg/dL (0.0-1.0); Blood Urea Nitrogen 50 mg/dL (6-20); Calcium 7.5 mg/dL (8.6-10.3); Carbon Dioxide 29 mEq/L (23-29); Chloride 96 mEq/L (98-107); Globulin 2.1 g/dL (2.4-3.5); Glucose 117 mg/dL (70-105); Magnesium 1.6 mg/dL (1.6-2.6); Osmolality,Calculated 288 (280-300); Potassium 4.2 mEq/L (3.5-5.1); Sodium 132 mEq/L (136-145); Total Protein 4.8 g/dL (6.4-8.9); eGFR For African Americans > 60 (> 60); eGFR For Non-African Americans > 60 (> 60)
[2021-11-19] MEDS: *HR* Heparin 5,000 UNIT/ML VIAL SQ SCH (06:49)
[2021-11-19] MEDS ORDERED: *HR* FentaNYL (PF) 100 MCG/2 ML VIAL IVP PRN (07:19)
[2021-11-19] MEDS ORDERED: *HR* HYDROmorphone PF 0.5 MG/0.5 ML SYRINGE IVP PRN (07:19)
[2021-11-19] MEDS ORDERED: Ipratropium Neb 0.5 MG NEBULIZER IH PRN (07:19)
[2021-11-19] MEDS ORDERED: 0.9 % Sodium Chloride 1,000 ML ONE ×2 (08:15→17:26)
[2021-11-19] MEDS ORDERED: Iopamidol - 370 500 ML MLS IVP ONE (08:24)
[2021-11-19 08:47] LABS: Hematocrit 33.6 % (37.5-50.1)
[2021-11-19 08:53] LABS: INR 2.2; Prothrombin Time 23.9 Seconds (9.4-12.1)
[2021-11-19 08:58] LABS: Hemoglobin 11.2 g/dL (12.9-16.9)
[2021-11-19] MEDS ORDERED: Octreotide 400 MCG in 0.9 % Sodium Chloride 100 ML IVC SCH (09:00)
[2021-11-19] MEDS: Pantoprazole 40 MG in 0.9 % Sodium Chloride Mini Bag 100 ML IVC SCH ×4 (09:05→19:53)
[2021-11-19] MEDS: Furosemide 20 MG/2 ML VIAL IVP SCH (09:28)
[2021-11-19] MEDS: Aspirin Enteric Coated 81 MG Tablet PO SCH (09:29)
[2021-11-19] MEDS: lisinopriL 5 MG TABLET PO SCH (09:29)
[2021-11-19] MEDS: Metoprolol XL (24 HR) Succ 25 MG TAB.ER.24H PO SCH (10:35)
[2021-11-19] MEDS ORDERED: Haloperidol Lactate 5 MG/ML VIAL IVP ONE (11:59)
[2021-11-19 14:25] LABS: Hematocrit 36.4 % (37.5-50.1); Hemoglobin 12.4 g/dL (12.9-16.9)
[2021-11-19] MEDS ORDERED: *HR* Propofol 200 MG/20 ML VIAL IVP ONE (16:59)
[2021-11-19] MEDS ORDERED: Lidocaine -MPF 1% 5 ML AMPUL ONE (17:09)
[2021-11-20] MEDS: Pantoprazole 40 MG in 0.9 % Sodium Chloride Mini Bag 100 ML IVC SCH ×3 (00:08→10:43)
[2021-11-20] MEDS: Piperacillin/Tazobactam 3.375 GM in 0.9 % Sodium Chloride Mini Bag 100 ML IVPB SCH ×3 (04:17→17:39)
[2021-11-20 04:30] LABS: Basophils % 0.2 %; Eosinophils % 0.1 %; Hematocrit 31.9 % (37.5-50.1); Immature Granulocytes % 0.6 % (0-4); Lymphocytes # 1.7 K/mcL (0.6-4.6); Lymphocytes % 11.1 %; Mean Corpuscular HGB Conc 34.5 g/dL (31.6-35.5); Mean Corpuscular Hemoglobin 30.8 pg (28.0-33.3); Mean Corpuscular Volume 89.4 fL (83.0-100.0); Mean Platelet Volume 10.8 fL (9.4-12.4); Monocytes % 12.9 %; Neutrophils # 11.3 K/mcL (1.6-8.9); Platelet Count 167 K/mcL (140-400); Red Blood Count 3.57 M/mcL (4.19-5.50); Red Cell Distribution Width 16.2 % (11.5-14.5); Segmented Neutrophils % 75.1 %; White Blood Count 15.1 K/mcL (4.3-11.1)
[2021-11-20 04:41] LABS: BUN/Creatinine Ratio 41 (6-26); Blood Urea Nitrogen 34 mg/dL (6-20); Calcium 7.5 mg/dL (8.6-10.3); Carbon Dioxide 30 mEq/L (23-29); Chloride 100 mEq/L (98-107); Glucose 102 mg/dL (70-105); Osmolality,Calculated 288 (280-300); Potassium 4.2 mEq/L (3.5-5.1); Sodium 135 mEq/L (136-145); eGFR For African Americans > 60 (> 60); eGFR For Non-African Americans > 60 (> 60)
[2021-11-20] MEDS: lisinopriL 5 MG TABLET PO SCH (07:35)
[2021-11-20] MEDS: Metoprolol XL (24 HR) Succ 25 MG TAB.ER.24H PO SCH (07:42)
[2021-11-20] MEDS ORDERED: Furosemide 20 MG/2 ML VIAL IVP ONE (10:08)
[2021-11-20] MEDS ORDERED: Ondansetron 4 MG/2 ML VIAL IVP PRN (11:41)
[2021-11-20] MEDS ORDERED: Naloxone 0.4 MG/ML INJ IVP PRN (11:41)
[2021-11-20] MEDS ORDERED: Acetaminophen 325 MG TABLET PO PRN (11:41)
[2021-11-20] MEDS ORDERED: Furosemide 20 MG/2 ML VIAL IVP SCH (17:00)
[2021-11-20] MEDS: Pantoprazole 40 MG VIAL IVP SCH (17:38)
[2021-11-20] MEDS: *HR* OxyCODONE Immed Rel 15 MG TABLET PO PRN (17:39)
[2021-11-21] MEDS: *HR* OxyCODONE Immed Rel 15 MG TABLET PO PRN ×3 (02:04→17:47)
[2021-11-21] MEDS: Piperacillin/Tazobactam 3.375 GM in 0.9 % Sodium Chloride Mini Bag 100 ML IVPB SCH ×3 (02:05→17:47)
[2021-11-21 02:30] LABS: Hematocrit 30.7 % (37.5-50.1); Hemoglobin 10.2 g/dL (12.9-16.9); Mean Corpuscular HGB Conc 33.2 g/dL (31.6-35.5); Mean Corpuscular Hemoglobin 29.9 pg (28.0-33.3); Mean Platelet Volume 10.7 fL (9.4-12.4); Platelet Count 183 K/mcL (140-400); Red Blood Count 3.41 M/mcL (4.19-5.50); Red Cell Distribution Width 16.2 % (11.5-14.5); White Blood Count 12.6 K/mcL (4.3-11.1)
[2021-11-21 02:51] LABS: BUN/Creatinine Ratio 32 (6-26); Blood Urea Nitrogen 25 mg/dL (6-20); Calcium 7.6 mg/dL (8.6-10.3); Carbon Dioxide 31 mEq/L (23-29); Chloride 96 mEq/L (98-107); Glucose 99 mg/dL (70-105); Osmolality,Calculated 278 (280-300); Potassium 3.9 mEq/L (3.5-5.1); Sodium 132 mEq/L (136-145); eGFR For African Americans > 60 (> 60); eGFR For Non-African Americans > 60 (> 60)
[2021-11-21] MEDS: Pantoprazole 40 MG VIAL IVP SCH ×2 (06:15→17:49)
[2021-11-21] MEDS: Metoprolol XL (24 HR) Succ 25 MG TAB.ER.24H PO SCH (10:16)
[2021-11-21 12:49] LABS: Albumin 2.6 g/dL (3.5-5.7); Albumin/Globulin Ratio 1.2 (1.1-2.2); Bilirubin,Direct 0.7 mg/dL (0.0-0.2); Bilirubin,Total 1.7 mg/dL (0.3-1.0); Globulin 2.2 g/dL (2.4-3.5); Total Protein 4.8 g/dL (6.4-8.9)
[2021-11-21] MEDS: Furosemide 20 MG TABLET PO SCH (12:54)
[2021-11-22] MEDS: Piperacillin/Tazobactam 3.375 GM in 0.9 % Sodium Chloride Mini Bag 100 ML IVPB SCH ×2 (02:15→09:39)
[2021-11-22 02:54] LABS: Basophils % 0.2 %; Eosinophils # 0.3 K/mcL (0.0-0.6); Eosinophils % 2.2 %; Hemoglobin 10.8 g/dL (12.9-16.9); Immature Granulocytes % 0.5 % (0-4); Lymphocytes # 2.3 K/mcL (0.6-4.6); Mean Corpuscular HGB Conc 32.7 g/dL (31.6-35.5); Mean Corpuscular Hemoglobin 30.5 pg (28.0-33.3); Mean Corpuscular Volume 93.2 fL (83.0-100.0); Mean Platelet Volume 10.8 fL (9.4-12.4); Monocytes # 1.6 K/mcL (0.0-1.3); Monocytes % 12.2 %; Neutrophils # 8.6 K/mcL (1.6-8.9); Platelet Count 213 K/mcL (140-400); Red Blood Count 3.54 M/mcL (4.19-5.50); Red Cell Distribution Width 16.2 % (11.5-14.5); Segmented Neutrophils % 66.9 %; White Blood Count 12.9 K/mcL (4.3-11.1)
[2021-11-22 03:11] LABS: BUN/Creatinine Ratio 17 (6-26); Blood Urea Nitrogen 20 mg/dL (6-20); Calcium 7.6 mg/dL (8.6-10.3); Carbon Dioxide 32 mEq/L (23-29); Chloride 93 mEq/L (98-107); Glucose 86 mg/dL (70-105); Magnesium 1.5 mg/dL (1.6-2.6); Osmolality,Calculated 270 (280-300); Phosphorous 2.3 mg/dL (2.7-4.5); Potassium 3.7 mEq/L (3.5-5.1); Sodium 129 mEq/L (136-145); eGFR For African Americans > 60 (> 60); eGFR For Non-African Americans > 60 (> 60)
[2021-11-22] MEDS: Pantoprazole 40 MG VIAL IVP SCH (05:44)
[2021-11-22] MEDS: Metoprolol XL (24 HR) Succ 25 MG TAB.ER.24H PO SCH (09:39)
[2021-11-22] MEDS: Furosemide 20 MG TABLET PO SCH (09:39)
[2021-11-22] MEDS ORDERED: Ringers Solution, Lactated 250 ML IVC ONE (11:37)
[2021-11-22 11:42] VITALS: O2SAT 98
[2021-11-22 13:53] LABS: BUN/Creatinine Ratio 18 (6-26); Blood Urea Nitrogen 18 mg/dL (6-20); Calcium 7.5 mg/dL (8.6-10.3); Carbon Dioxide 29 mEq/L (23-29); Chloride 95 mEq/L (98-107); Glucose 76 mg/dL (70-105); Osmolality,Calculated 275 (280-300); Potassium 3.6 mEq/L (3.5-5.1); Sodium 132 mEq/L (136-145); eGFR For African Americans > 60 (> 60); eGFR For Non-African Americans > 60 (> 60)
[2021-11-22 15:41] VITALS: BP 96/54; PULSE 95; TEMP 98.1
[2021-11-22] MEDS ORDERED: Magnesium Oxide 400 MG TABLET PO SCH (15:45)
== END 2021-11-22 19:14 | disposition home or self-care (01) | DRG 871 ==
LOC: 2ANU 13:43 → EMEROOARM 13:43 → SUATTDRO 19:19 → 2ANU 20:04 → SUATTDRO 11-18 13:53 → ICNU 11-19 09:26 → 3ANU 11-20 14:28
PROVIDERS: ADMIT General Practice; ATTEND Family Medicine